=== PATIENT | female | born 1985 | race African-American/Black ===

== ENCOUNTER 2017-02-17 16:44 | Outpatient (CLI) | payer OTHER ==
[2017-02-17 17:44] LABS: APPEARANCE,URINE SLIGHTLY-CLOUDY; BILIRUBIN,URINE NEGATIVE (NEGATIVE); GLUCOSE, URINE >=500 mg/dL (NEGATIVE); KETONES,URINE TRACE mg/dL (NEGATIVE); LEUKOCYTE ESTERASE,URINE SMALL (NEGATIVE); NITRITE,URINE NEGATIVE (NEGATIVE); PROTEIN,URINE NEGATIVE (NEGATIVE); URINE SPECIFIC GRAVITY 1.023; UROBILINOGEN,URINE NEGATIVE mg/dL (<2.0)
[2017-02-17 17:57] LABS: URINE BARBITURATES SCREEN NEGATIVE; URINE METHADONE SCREEN NEGATIVE; URINE OPIATES LOW NEGATIVE; URINE PHENCYCLIDINE SCREEN NEGATIVE
[2017-02-17 18:21] LABS: FIBRINOGEN 534 mg/dL (209-497); PROTHROMBIN TIME 13.5 SEC (11.4-15.4)
[2017-02-17 18:22] LABS: PARTIAL THROMBOPLASTIN TIME 29.6 SEC (23.5-35.8)
--- NOTE | 2017-02-17 19:39 | RADIOLOGY REPORT (SQ) ---
EXAM DESCRIPTION: U/S OB LIMITED COMPLETED DATE/TIME: 02/17/2017 6:35 pm REASON FOR STUDY: Placental integrity,cervical [id number],pt fell COMPARISON: None. TECHNIQUE: Limited transabdominal grayscale ultrasound for evaluation of specific requested obstetri phu parameters. LIMITATIONS: None. FINDINGS: CERVICAL LENGTH: 2.7 cm Closed. FHR: 160 beats per minute. PRESENTATION: Cephalic. OTHER: No other significant findings. IMPRESSION: LIMITED OBSTETRICAL ULTRASOUND WITH MEASURED PARAMETERS DELINEATED ABOVE. Trimester of : Third trimester - 28 weeks to delivery. TECHNICAL DOCUMENTATION: JOB ID: [id number] [employer]- All Rights Reserved
[2017-02-17 20:43] LABS: TOTAL RBC COUNT 2070; TYPE IN FILE? TYPE IN FILE; VOL OF FETOMATERNAL HEMORRHAGE 0 ML (0)
--- NOTE | 2017-02-17 21:09 | Non Stress Test Report ---
Non Stress Test Datetime Report Generated by CPN: 02/17/2017 21:08 DEMOGRAPHIC EGA NST: 33.2 INDICATION Indication for Study: Ordered by Provider Indication for Study (NST) Other: Post Fall MONITORING Monitor Explained: Monitor Explained; Test Explained; Patient Verbalized Understanding Time on Monitor: 02/17/2017 17:19 Time off Monitor: 02/17/2017 20:52 NST Duration: 213 NST INTERVENTIONS NST Interventions: PO Hydration; Reposition Patient Physician Notified NST: [place] BABY A: [id number] BABY A Movement : Present Contraction Frequency : occasional FHR Baseline : 150 Accelerations : 15X15 Decelerations : None Variability : Moderate 6-25bpm NST Review: Meets Criteria for Reactive NST NST Review and Verified By : HIREN Son NST Results: Reactive NST REPORT Report Trigger: Send Report
== END 2017-02-17 21:02 | disposition home or self-care (01) ==
LOC: LC 16:44
PROVIDERS: ATTEND Student in an Organized Health Care Education/Training Program
PROC: 4A1HXCZ Monitoring of Products of Conception, Cardiac Rate, External Approach (ICD-10-PCS; principal; 2017-02-17)
DX: O47.03 False labor before 37 completed weeks of gestation, third trimester (principal); Z3A.32 32 weeks gestation of pregnancy; Z91.81 History of falling
CPT/HCPCS: 36415; 59025; 76815; 80307; 81001; 85384; 85460; 85610; 85730; 86850; 86900; 86901